=== PATIENT | male | born 1985 | race African-American/Black ===

== ENCOUNTER 2016-10-08 17:08 | Emergency (ER) | payer MEDICAID ==
[~2016-10-08] VITALS: Ht 185.4 cm; Wt 145.1 kg
[~2016-10-08 17:08] MED LIST: PREVACID15 M2 ORAL; VIBRAMYCIN100 MG ORAL
[2016-10-08 17:56] LABS: APPEARANCE,URINE CLEAR; KETONES,URINE NEGATIVE (NEGATIVE); LEUKOCYTE ESTERASE ,URINE NEGATIVE (NEGATIVE); NITRITE,URINE NEGATIVE (NEGATIVE); PH,URINE 7 (4.5-8.0); PROTEIN,URINE NEGATIVE (NEGATIVE); UROBILINOGEN,URINE NORMAL MG/DL (0.0-1.0)
[2016-10-08 18:29] VITALS: BP 125/83
--- NOTE | 2016-10-08 23:51 | Emergency Room Report ---
History of Present Illness General Chief Complaint: General Complaint Source: Patient Present Illness HPI The patient is a 31-year-old male who denies any symptoms but states that he is concerned for a possible penile infection due to his sexual partner being diagnosed with a vaginal yeast infection. The patient denies F, chills, pain, dysuria, hematuria, flank pain Allergies: Coded Allergies: No Known Allergies (Unverified , 08/05/16) Patient History Past Medical History: see triage record Pertinent Family History: none Reviewed Nursing Documentation: PMH: Agreed, PSxH: Agreed Review of Systems All Other Systems: negative except mentioned in HPI Physical Exam Vital Signs Date Time Temp Pulse Resp B/P Pulse Ox O2 Delivery O2 Flow Rate FiO2 10/08/16 17:24 98.1 76 15 125/83 96 Room Air Sp02 EP Interpretation: reviewed, normal General Appearance: no apparent distress, alert, GCS 15, non-toxic Head: normocephalic, atraumatic Gastrointestinal: normal bowel sounds, non tender, soft, no mass, non-distended , no guarding, no hernia, no rebound Rectal: deferred Genitourinary: normal inspection, no CVA tenderness, penis normal, scrotum normal Musculoskeletal: back normal, gait/station normal, normal range of motion, non- tender Neurologic: alert, oriented x3, responsive, motor strength/tone normal, sensory intact, speech normal Psychiatric: judgement/insight normal, memory normal, mood/affect normal, no suicidal/homicidal ideation Skin: normal color, no rash, warm/dry, well hydrated Medical Decision Making PA Attestation Dr. Florez is my supervising physician. Patient management was discussed with my supervising physician Diagnostic Impression: Primary Impression: Normal urinalysis ER Course The patient is a 31-year-old male presenting for possible exposure to vaginal yeast infection. Differential diagnoses considered: Urinary tract infection, STD, candidiasis Physical exam: No apparent distress. Penis and scrotum unremarkable. Nontender. No erythema or edema. No discharge. No CVA tenderness Urinalysis shows no signs of infection The patient will be discharged home with ER precautions. Laboratory Tests Test 10/08/16 17:47 Urine Color Pale yellow Urine Appearance Clear Urine pH 7 (4.5-8.0) Urine Specific [place] 1.015 (1.005-1.035) Urine Protein Negative (NEGATIVE) Urine Glucose (UA) Negative (NEGATIVE) Urine Ketones Negative (NEGATIVE) Urine Occult Blood Negative (NEGATIVE) Urine Nitrite Negative (NEGATIVE) Urine Bilirubin Negative (NEGATIVE) Urine Urobilinogen Normal MG/DL (0.0-1.0) Urine Leukocyte Esterase Negative (NEGATIVE) Lab Results Impression No signs of infection Last Vital Signs Date Time Temp Pulse Resp B/P Pulse Ox O2 Delivery O2 Flow Rate FiO2 10/08/16 18:29 98.0 76 15 125/83 96 Room Air Status: improved Disposition: HOME, SELF-CARE Condition: Improved Referrals: NOT CHOSEN [facility]/MD,REFERRING (PCP) Patient Instructions: Genital Yeast Infection, Male Additional Instructions: I discussed my findings with the patient. All questions and concerns have been answered. Treatment and medication compliance have been addressed. I advised the patient that they need to follow up with PMD in 3-5 days. Return to ED if symptoms worsen, new symptoms arise, or if needed for any reason. Patient verbalized understanding of discharge instructions. CHAZ SINGER Oct 08, 2016 23:51
== END 2016-10-08 18:30 | disposition home or self-care (01) ==
LOC: EMR 17:50
DX: Z04.8 Encounter for examination and observation for other specified reasons (principal); Z20.89 Contact with and (suspected) exposure to other communicable diseases
CPT/HCPCS: 81003; 99283